=== PATIENT | male | born 1990 | race Caucasian/White ===

== ENCOUNTER 2025-03-28 11:34 | Day surgery (SDC) | payer OTHER ==
[~2025-03-28] VITALS: Ht 170.2 cm; Wt 198.7 kg
[~2025-03-28 11:34] MED LIST: BRIM5DRO4; BUPR150T12 PO; BUSP15TA47 PO; CLAR10CA3 PO; HYDR-3490 PO; IBUP200T46 PO; LIDOCAINE 3.5% 1 ML OPHTH TOPICAL GEL OU ONE; LISI40TA10 PO; XALA0.007
[2025-03-28] MEDS ORDERED: MIDAZOLAM INJ 2 MG/2 ML VIAL As Ordered ONE (13:11)
[2025-03-28] MEDS: TOBRADEX OPHTH OINT 3.5 GM As Ordered ONE (14:08)
[2025-03-28] MEDS: LIDOCAINE 1% SDV 5 ML VIAL As Ordered ONE (14:08)
[2025-03-28 14:15] VITALS: BP 136/87; TEMP 97.1; O2SAT 96
== END 2025-03-28 14:35 | disposition home or self-care (01) ==
LOC: M SDC 11:34
PROVIDERS: ATTEND Ophthalmology
DX: H40.1112 Primary open-angle glaucoma, right eye, moderate stage (principal); I10 Essential (primary) hypertension; Z79.899 Other long term (current) drug therapy; F17.290 Nicotine dependence, other tobacco product, uncomplicated
CPT/HCPCS: 66183; C1783; J2250; J3010; J7315